=== PATIENT | male | born 1970 | race Caucasian/White ===

== ENCOUNTER 2016-03-28 14:01 | Observation (INO) ==
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
[2016-03-28] MEDS ORDERED: Aspirin 325 MG TABLET PO ONE (15:10)
[2016-03-28] MEDS ORDERED: Nitroglycerin 0.4 MG TAB.SUBL SL PRN (15:10)
--- NOTE | 2016-03-28 15:17 | Emergency Department Note ---
Disposition Clinical Impression: Hypoxia, Hyperglycemia, Obesity Hypertension Qualifiers: Hypertension type: unspecified secondary hypertension Qualified Code(s): I15.9 - Secondary hypertension, unspecified Chest pain Qualifiers: Chest pain type: unspecified Qualified Code(s): R07.9 - Chest pain, unspecified Disposition: Admitted As Inpatient Condition: Good General Adult HPI - General Chief complaint: ED Shortness of Breath/Dyspnea Stated complaint: SOB/Edema/CP Time Seen by Provider: 03/28/16 14:41 Source: patient Mode of arrival: ambulatory Limitations: no limitations Nursing Notes Reviewed: Yes Vital Signs Reviewed: Yes - History of Present Illness Pain Scale: 5 - Related Data Home Medications Medication Instructions Recorded Confirmed Amlodipine [Norvasc] 5 mg PO DAILY 03/28/16 03/28/16 Insulin Regular U-500 [HumuLIN R 0 unit SQ DAILY MDD per insulin 03/28/1603/28 U-500] pump Lisinopril [Zestril] 40 mg PO DAILY 03/28/16 03/28/16 Metformin HCl [Glucophage] 1,000 mg PO BID 03/28/16 03/28/16 Metoprolol XL (24 HR) Succ [Toprol 25 mg PO DAILY 03/28/16 03/28/16 XL] Venlafaxine HCl [Venlafaxine HCl 75 mg PO DAILY 03/28/16 03/28/16 ER] Allergies Allergy/AdvReac Type Severity Reaction Status Date / Time No Known Allergies Allergy Verified 02/21/16 06:41 Constitutional: Reports: as per HPI. Denies: fever Eyes: Reports: as per HPI ENT ED: Reports: as per HPI Cardiovascular: Reports: as per HPI, chest pain, dyspnea on exertion. Denies: palpitations Respiratory: Reports: as per HPI Gastrointestinal: Reports: as per HPI. Denies: nausea, vomiting Genitourinary: Reports: as per HPI Musculoskeletal: Reports: as per HPI, back pain Integumentary: Reports: as per HPI Neurological: Reports: as per HPI Psychiatric: Reports: as per HPI Endocrine: Reports: as per HPI Hematological/Lymphatic: Reports: as per HPI Past Medical History - Past Medical History Medical history: Reports: diabetes, hyperlipidemia, hypertension Surgical history: Reports: non-contributory Psychiatric history: Reports: depression - Social History Smoking Status: Former smoker Smokeless Tobacco Status: No Alcohol use: Reports: none Drug use: Reports: none Physical Exam - General Limitations: no limitations General appearance: alert, in no apparent distress, obese Course Vital Signs Temperature 98.8 F 03/28/16 14:07 Pulse Rate 114 03/28/16 14:07 Respiratory Rate 22 03/28/16 14:07 Blood Pressure 177/93 03/28/16 14:07 O2 Sat by Pulse Oximetry 88 L 03/28/16 14:07 Temperature 98.1 F 03/28/16 17:54 Pulse Rate 102 03/28/16 17:54 Respiratory Rate 15 03/28/16 17:54 Blood Pressure 153/85 03/28/16 17:54 O2 Sat by Pulse Oximetry 95 03/28/16 17:54 Oxygen Delivery Oxygen Delivery Nasal Cannula Medical Decision Making - MDM Narrative Medical decision making narrative: I evaluated this patient with Dr. Cooper, agree with his evaluation management plan, supervise care the patient's stay. Patient was here yesterday he was hypoxic. He appears to have pickwickian profile. Chest x-ray showed no pneumonia stay he had no CT evidence of PE. They wanted admitting he got and some family discussion and independently. He came back today doing anything new today is is also given some chest discomfort. Blood pressure is high. Room him some nitroglycerin try to reduce his preload and takes aspirin and repeat his labs in the bring him into the hospital. Think he might benefit from a pulmonary consult possible CPAP and then reassess. He is in agreement with this plan. Chest X-Ray 03/28/16 14:41 IMPRESSION: No evidence of acute disease. D/ / Jones Torre MD / Jones Torre MD Interpreting Provider: Jones Torre MD 1540 hrs.: Labs are back troponins negative her bring him into the hospital with chest pain rule out ACS. Dyspnea. He is in agreement with this plan. - Lab Data Result diagrams: 03/28/16 14:55 Lab Results 03/28/16 03/28/16 Range/Units 14:55 14:55 Sodium 140 (136-145) mEq/L Potassium 4.2 (3.5-4.5) mEq/L Chloride 103 (98-109) mEq/L Carbon Dioxide 31 H (19-29) mEq/L BUN 24 (8-26) mg/dL Creatinine 1.03 (0.72-1.25) mg/dL Est GFR ( Amer) > 60 (> 60) Est GFR (Non-Af Amer) > 60 (> 60) BUN/Creatinine Ratio 23 (6-26) Glucose 139 H (70-99) mg/dL Calculated Osmolality 296 (280-300) Calcium 9.3 (8.6-10.8) mg/dL Troponin I 0.01 (0-0.03) ng/mL
[2016-03-28 15:26] LABS: BUN/Creatinine Ratio 23 (6-26); Blood Urea Nitrogen 24 mg/dL (8-26); Calcium 9.3 mg/dL (8.6-10.8); Carbon Dioxide 31 mEq/L (19-29); Chloride 103 mEq/L (98-109); Glucose 139 mg/dL (70-99); Osmolality,Calculated 296 (280-300); Potassium 4.2 mEq/L (3.5-4.5); Sodium 140 mEq/L (136-145); eGFR For African Americans > 60 (> 60); eGFR For Non-African Americans > 60 (> 60)
[2016-03-28] MEDS ORDERED: *HR* Metoprolol 5 MG/5 ML VIAL IVP ONE (16:02)
[2016-03-28] MEDS ORDERED: Ondansetron 4 MG/2 ML VIAL IVP PRN (18:42)
[2016-03-28] MEDS ORDERED: Naloxone 0.4 MG/ML INJ IVP PRN (18:42)
[2016-03-28] MEDS ORDERED: Acetaminophen 325 MG TABLET PO PRN (18:42)
--- NOTE | 2016-03-28 18:45 | Internal Med History&Physical ---
Date of Encounter: 03/28/16 Time of Encounter: 18:45 Assessment and Plan (1) Acute respiratory failure with hypoxia Current visit: Yes Status: Acute Chest x-ray shows no evidence of infection, pleural effusion or volume overload. Continue supplemental oxygen at this time. Patient likely has underlying pulmonary hypertension related to possible obstructive sleep apnea/ obesity hypoventilation syndrome. Home oxygen evaluation prior to discharge. Check 2-D echocardiogram to assess for pulmonary hypertension, valvular abnormalities and left ventricular EF. (2) Chest pain Current visit: Yes Status: Acute To rule out ACS and CHF, given his exertional dyspnea, leg swelling, orthopnea and chest pain. Telemetry monitoring with serial troponin trending. 2-D echocardiogram as above. Intermittent IV Lasix and fluid restriction for significant pedal edema. Supportive care. When necessary supplemental oxygen. Qualifiers: Chest pain type: unspecified Qualified Code(s): R07.9 - Chest pain, unspecified (3) Diabetes mellitus Current visit: Yes Status: Chronic Check hemoglobin A1c. Doubtful compliance with diet and medications. Patient is noted to be on insulin pump with RI U500 at basal dose set every 30min and bolus dose customized to carbs and preprandial blood sugar; will continue this for now along with Accucheck blood glucose monitoring; consistent carbohydrate diet; Qualifiers: Diabetes mellitus type: type 2 Diabetes mellitus complication status: with hyperglycemia Diabetes mellitus half-way insulin use: with half-way use Qualified Code(s): E11.65 - Type 2 diabetes mellitus with hyperglycemia; Z79.4 - MCFP (current) use of insulin (4) Hyperlipidemia Current visit: Yes Status: Chronic Qualifiers: Hyperlipidemia type: mixed hyperlipidemia Qualified Code(s): E78.2 - Mixed hyperlipidemia (5) Hypertension Current visit: Yes Status: Chronic Poorly controlled due to medical noncompliance; resume home meds and monitor BP closely; Qualifiers: Hypertension type: essential hypertension Qualified Code(s): I10 - Essential (primary) hypertension (6) Obesity Current visit: Yes Status: Chronic Qualifiers: Obesity type: due to excess calories Obesity severity: unspecified obesity severity Qualified Code(s): E66.09 - Other obesity due to excess calories Internal Medicine - H&P: HPI Chief complaint: Shortness of breath, leg swelling Admitted From: Emergency Dept Plans for Post Hospital Care: Home History of present illness: Mr. Dubon is a 46 year old male with history of hypertension and diabetes, presenting with complaints of progressively worsening shortness of breath. Patient presented to the emergency room yesterday with similar complaints and had a negative workup including CT angiogram of the chest which was negative for pulmonary embolism and was discharged home. He presents today with similar complaints and is noted to be hypoxic on room mate in the emergency room and hospitalist was called for admission. Patient reports that he has been having progressively worsening shortness of breath for the last few weeks to months, both at rest and with exertion. He also reports orthopnea and paroxysmal nocturnal dyspnea and significant leg swelling. This is associated with intermittent retrosternal chest pressure like sensation, nonradiating and he also had chest pain today, relieved with nitroglycerin in the emergency room. No cough, dizziness, syncope, vomiting, diarrhea. He underwent pharmacologic stress test about 2-3 years back, which was normal according to him. He reports being under significant emotional stress as he just from his today. Past Med Surg Social Fam HX - Past Medical History Medical history: diabetes, hyperlipidemia, hypertension Psychiatric history: depression - Past Surgical History Surgical History: orthopedic, other (Right tibial ORIF, bilateral carpal tunnel release surgeries) - Social History Smoking Status: Former smoker Smokeless Tobacco Status: Yes (Chews tobacco) Alcohol use: none Drug use: none Occupational status: employed Current living situation: Home - Independent Activity Level: Independent ambulation Recent Out of Country Travel Within the Last 8 Weeks: No Exposure or Possible Exposure to Illness During Travel: No - Family History Father Name: Albert Dubon Living Status: Still Living Hx Family Cardiac Disorders: Yes (Coronary artery disease, [place]) Paternal Grandfather Hx Family Cardiac Disorders: Yes ([place]) Mother Hx Family Endocrine Disorder: Yes (Diabetes) Internal Medicine - H&P: Meds Amlodipine [Norvasc] 5 mg PO DAILY 03/28/16 [History] Insulin Regular U-500 [HumuLIN R U-500] 0 unit SQ DAILY MDD per insulin pump [History] Lisinopril [Zestril] 40 mg PO DAILY 03/28/16 [History] Metformin HCl [Glucophage] 1,000 mg PO BID 03/28/16 [History] Metoprolol XL (24 HR) Succ [Toprol XL] 25 mg PO DAILY 03/28/16 [History] Venlafaxine HCl [Venlafaxine HCl ER] 75 mg PO DAILY 03/28/16 [History] Allergies No Known Allergies Allergy (Verified 02/21/16 06:41) All Systems PM: A 10-system review of systems was performed and is negative for pertinent findings except as documented above in the HPI. - Constitutional Constitutional: weight gain - EENT Eyes: no change in vision, no discharge, no pain, no photophobia Ears: no ear discharge, no ear pain, no tinnitus Nose, mouth and throat: no dysphagia, no nasal discharge, no neck pain, no sore throat - Cardiovascular Cardiovascular ROS IM: chest pain, dyspnea, dyspnea on exertion, edema, paroxysmal nocturnal dyspnea - Respiratory Respiratory: dyspnea on exertion, no cough, no dyspnea, no wheezing, no excessive phlegm production - Gastrointestinal Gastrointestinal: no abdominal pain, no diarrhea, no hematemesis, no hematochezia, no melena, no nausea, no vomiting - Musculoskeletal Musculoskeletal ROS IM: no numbness, no tingling - Integumentary Integumentary IM: no rash, no unusual bruising - Neurological Neurological ROS: no confusion, no convulsions, no focal weakness, no numbness, no tingling, no tremor(s) - Hematologic/Lymphatic Hematologic/Lymphatic: no easy bruising - Constitutional Vitals: Temp Pulse Resp BP Pulse Ox 98.1 F 102 15 153/85 95 03/28/16 17:54 03/28/16 17:54 03/28/16 17:54 03/28/16 17:54 03/28/16 17:54 General appearance: Present: A&O X 3, obese, answers questions appropriately - Head Head exam: Present: atraumatic, normocephalic - Neck Neck exam general surgery: Present: supple, trachea midline. Absent: lymphadenopathy - Respiratory Respiratory exam: Present: CTAB. Absent: accessory muscle use, rales, rhonchi, wheezes - Cardiovascular Cardiovascular exam: Present: RRR, +S1, +S2. Absent: diastolic murmur, gallop, rubs, systolic murmur - GI/Abdominal GI/Abdominal exam: Present: normal bowel sounds, soft (Obese and nontender), no peritoneal signs. Absent: distended, tenderness - Extremities Exam Extremities exam: Present: pedal edema (2+ tense pedal edema bilateral ankles and legs), warm, radial pulses palpable and symetrical. Absent: calf tenderness , cyanotic - Neurological Exam Neurological exam: Present: CN II-XII intact, oriented X3, no focal deficits. Absent: pronater drift, facial droop, speech deficit - Skin Skin exam: Present: dry, intact Internal Med - H&P Results - Labs CBC & Chem 7: 03/29/16 01:07 03/29/16 01:07 - EKG Data -: EKG Interpreted by Myself EKG shows normal: sinus rhythm Rate: tachycardia - EKG Data EKG comments: 03/29/16 10:16 Changes suggestive of LVH and repolarization abnormalities
[2016-03-28] MEDS: *HR* Metformin 500 MG TABLET PO SCH (21:00)
[2016-03-28] MEDS ORDERED: Furosemide 40 MG/4 ML VIAL IVP ONE (23:36)
[2016-03-29 01:15] LABS: Basophils # 0.1 K/mcL (0.0-0.2); Basophils % 0.6 %; Eosinophils # 0.2 K/mcL (0.0-0.6); Hematocrit 48.1 % (37.5-50.1); Hemoglobin 15.2 g/dL (12.9-16.9); Immature Granulocytes % 0.6 % (0-4); Immature Platelets 1.3 % (1.1-6.1); Lymphocytes # 3.7 K/mcL (0.6-4.6); Lymphocytes % 32.7 %; Mean Corpuscular HGB Conc 31.6 g/dL (31.6-35.5); Mean Corpuscular Hemoglobin 27.9 pg (28.0-33.3); Mean Corpuscular Volume 88.4 fL (83.0-100.0); Mean Platelet Volume 8.2 fL (9.4-12.4); Monocytes # 0.9 K/mcL (0.0-1.3); Monocytes % 7.6 %; Neutrophils # 6.4 K/mcL (1.6-8.9); Platelet Count 286 K/mcL (140-400); Red Blood Count 5.44 M/mcL (4.19-5.50); Red Cell Distribution Width 14.6 % (11.5-14.5); Segmented Neutrophils % 56.5 %
[2016-03-29 01:23] LABS: Hemoglobin A1C 8.1 %
[2016-03-29 01:30] LABS: BUN/Creatinine Ratio 20 (6-26); Blood Urea Nitrogen 21 mg/dL (8-26); Calcium 9.4 mg/dL (8.6-10.8); Carbon Dioxide 28 mEq/L (19-29); Chloride 101 mEq/L (98-109); Chol/HDL Ratio 7.7 (0-4.9); Cholesterol 268 mg/dL (< 200); Glucose 60 mg/dL (70-99); HDL Cholesterol 35 mg/dL (40-59); LDL Cholesterol,Calculated 169 mg/dL (0-99); Osmolality,Calculated 291 (280-300); Potassium 3.8 mEq/L (3.5-4.5); Sodium 140 mEq/L (136-145); Triglycerides 322 mg/dL (< 150); eGFR For African Americans > 60 (> 60); eGFR For Non-African Americans > 60 (> 60)
[2016-03-29] MEDS ORDERED: Baclofen 10 MG TABLET PO PRN (04:07)
[2016-03-29] MEDS ORDERED: Lisinopril 20 MG TABLET PO SCH (09:00)
[2016-03-29] MEDS ORDERED: amLODIPine 5 MG TABLET PO SCH (09:00)
[2016-03-29] MEDS ORDERED: Metoprolol XL (24 HR) Succ 25 MG TAB.ER.24H PO SCH (09:00)
[2016-03-29] MEDS ORDERED: Venlafaxine XR (24 HR) 75 MG CAP.ER.24H PO SCH (09:00)
--- NOTE | 2016-03-29 09:05 | Internal Med Progress Note ---
Date of Encounter: 03/29/16 Time of Encounter: 09:03 - Assessment and plan (1) Chest pain Current Visit: Yes Status: Acute Assessment and plan: Intermittent chest pain, negative troponins. No EKG changes. Patient refused to undergo a stress test. We will obtain an echocardiogram and reassess with results. Patient with morbid obesity, bilateral leg swelling. Clinically there is a strong possibility of obstructive sleep apnea. Discussed with the patient in detail, will evaluate results of echo, if unremarkable may discharge the patient home this afternoon. He agreed with the plan. Qualifiers: Chest pain type: unspecified Qualified Code(s): R07.9 - Chest pain, unspecified (2) Obesity Current Visit: Yes Status: Acute Qualifiers: Obesity type: unspecified obesity type Obesity severity: unspecified obesity severity Qualified Code(s): E66.9 - Obesity, unspecified - Time Spent With Patient 25 - 35 minutes - Subjective Interval history: First encounter with the patient. Patient is complaining of intermittent shortness of breath along with intermittent episodes of chest pain. Additionally, bilateral leg swelling. Patient states that he was upset, anxious due to he had his split up yesterday. - Constitutional Vitals: Temp Pulse Resp BP Pulse Ox 97.8 F 108 19 133/90 92 L 03/29/16 07:15 03/29/16 07:15 03/29/16 07:15 03/29/16 07:15 03/29/16 07:15 General appearance: Present: cooperative, morbidly obese, no acute distress - Head Head exam: Present: atraumatic, normocephalic - Eye Eye exam: Present: PERRL, conjuntiva pink, sclera anicteric Pupils: Present: PERRL - Neck Neck exam general surgery: Present: supple, trachea midline. Absent: lymphadenopathy - Respiratory Respiratory exam: Present: CTAB. Absent: accessory muscle use, rales, rhonchi, wheezes - Cardiovascular Cardiovascular exam: Present: RRR, +S1, +S2. Absent: diastolic murmur, gallop, rubs, systolic murmur - GI/Abdominal GI/Abdominal exam: Present: normal bowel sounds, soft, no peritoneal signs. Absent: distended, tenderness - Extremities Exam Extremities exam: Present: pedal edema, warm, radial pulses palpable and symetrical. Absent: calf tenderness, cyanotic - Neurological Exam Neurological exam: Present: CN II-XII intact, oriented X3, no focal deficits. Absent: pronater drift, facial droop, speech deficit - Skin Skin exam: Present: dry, intact Internal Medicine: Result - Labs CBC & Chem 7: 03/29/16 01:07 03/29/16 01:07 Labs: Short CBC 03/29/16 Range/Units 01:07 WBC 11.3 H (4.3-11.1) K/mcL Hgb 15.2 (12.9-16.9) g/dL Hct 48.1 (37.5-50.1) % Plt Count 286 (140-400) K/mcL Neutrophils # 6.4 (1.6-8.9) K/mcL BMP 03/29/16 01:07 Sodium 140 Potassium 3.8 Chloride 101 Carbon Dioxide 28 BUN 21 Creatinine 1.05 Glucose 60 L Calcium 9.4 Cardiac Enzymes 03/28/16 03/29/16 03/29/16 Range/Units 19:05 01:07 06:32 Troponin I 0.02 0.02 0.00 (0-0.03) ng/mL Consult Discharge Plan - Plan Referrals: Devon Salvador DO [Primary Care Provider] -
[2016-03-29] MEDS ORDERED: Perflutren Lipid Microsphere 1.3 ML in 0.9 % Sodium Chloride 8.7 ML IVP ONE (09:35)
[2016-03-29] MEDS: *HR* Metformin 500 MG TABLET PO SCH (09:39)
[2016-03-29 11:03] VITALS: BP 130/80
--- NOTE | 2016-03-29 12:04 | ECHO - Doppler Report ---
Echo with Imaging Enhancement Agent Name: Ángel Dubon Date of Study: 03/29/2016 Date: 1970 Ht: 70.0 in Medical Record#: [id number] Age: 46 Wt: 342.0 lb Gender: Male BSA: 2.62 Order #: [id number] Location: [facility] Room #: 3B38 Reading Physician: Vera Ballard DO Account Development Specialist: WILTON DoyleT, [facility] Ordering Physician: Roxy Silva MD Primary Physician: Dmitri Salvador DO Indications: Shortness of breath Impressions: LVEF 60%. Normal left ventricular size and systolic function. Definity was given. There is evidence of mild diastolic dysfunction of the left ventricle. Normal right ventricular size and function. No significant valvular dysfunction. No pulmonary hypertension. Left Ventricular Wall Motion: Rest Echo Findings All wall segments showed normal motion. Findings: Study Quality * Technically sub-optimal due to body habitus. ECG Findings * Normal sinus rhythm. Left Ventricle * LVEF 60%. * Poor parasternal images. Unable to measure LV wall thickness. * Visually, LV size and wall thickness appear normal. * Mild left ventricular diastolic dysfunction. * Definity echo contrast was used. Aortic Valve * No aortic regurgitation. * Aortic valve not well visualized. * No aortic stenosis. Mitral Valve * No mitral regurgitation. * Normal mitral valve structure. * No mitral stenosis. Right Ventricle * Normal right ventricular structure and function. Left Atrium * Normal left atrial size. Right Atrium * Normal right atrial size. Tricuspid Valve * Tricuspid valve not well visualized. * Trace tricuspid regurgitation. Pulmonic Valve * Pulmonic valve is not well visualized. * No pulmonic stenosis. * No pulmonic regurgitation. Pulmonary Artery * Pulmonary artery not well visualized. Interatrial Septum * Interatrial septum not well evaluated. Aorta * Not well seen. Pericardium * There is no pericardial effusion present. IVC * The IVC is not well evaluated. History Hypertension Diabetes Contrast: Definity 1.3 ml in 8.7 ml of saline 3 ml. Measurements: BP: 106/ 72 2D Normal Values LVIDd: 5.20 cm 3.7 - 5.6 cm LVIDs: 3.80 cm 1.5 - 3.6 cm AO: 2.90 cm < 4.0 cm LA: 3.70 cm 2.0 - 4.0cm %FS: 26.90 cm >25 % LA volume: 44 Mitral Valve Peak E:1.29 m/sec Peak A:1.12 m/sec E/A Ratio:1.2 Tricuspid Valve TV Regurg Peak Grad: 23.00mmHg TV Regurg Peak Arcenio: 2.40m/sec Updated by Vera Ballard on 03/29/2016 11:57:39 AM electronically signed on 03/29/2016 11:59:33 AM with status of Final Wall Motion Fu: 1=Normal, 2=Hypokinesis, 3=Akinesis, 4=Dyskinesis, 5=Aneurysmal, 6=Hyperkinetic, X=Not Visualized (Blank)=Missing
--- NOTE | 2016-03-29 13:35 | Discharge Summary ---
Date of Encounter: 03/29/16 Time of Encounter: 13:33 - Discharge Diagnosis (1) Chest pain Priority: Primary Status: Acute Qualifiers: Chest pain type: unspecified Qualified Code(s): R07.9 - Chest pain, unspecified (2) Obesity Priority: Secondary Status: Chronic Qualifiers: Obesity type: due to excess calories Obesity severity: unspecified obesity severity Qualified Code(s): E66.09 - Other obesity due to excess calories - Discharge Medications Home Medications: Amlodipine [Norvasc] 5 mg PO DAILY 03/28/16 [History] Insulin Regular U-500 [HumuLIN R U-500] 0 unit SQ DAILY MDD per insulin pump [History] Lisinopril [Zestril] 40 mg PO DAILY 03/28/16 [History] Metformin HCl [Glucophage] 1,000 mg PO BID 03/28/16 [History] Metoprolol XL (24 HR) Succ [Toprol XL] 25 mg PO DAILY 03/28/16 [History] Venlafaxine HCl [Venlafaxine HCl ER] 75 mg PO DAILY 03/28/16 [History] Allergies/Adverse Reactions: Allergies No Known Allergies Allergy (Verified 02/21/16 06:41) Procedures/tests Complete & Pending: Procedures Performed prior 72 hours Category Date Time Status EV echocardiogram w enhance Routine Y 03/29/16 18:43 Completed Date of admission: 03/28/16 16:40 Primary care physician: Devon Salvador, Consults: 03/28/16 18:45 Consult to Booking Officer [CONS] Routine Comment: 03/28/16 18:50 Consult to Head Of Biology [CONS] Routine Reason for SW Consult: possible home oxygen set up Discharging clinician: Mahesh Edward Anticipated date of discharge: 03/29/16 - Patient Status Disposition: Home, Self-Care Condition: Good Functional capacity at discharge: independent ambulation Overall status at discharge: patient is back to baseline - Discharge Instructions Follow Up With: Devon Salvador DO [Primary Care Provider] - Additional Instructions: MARTY workup - Diet and Activity Activity: increase activity as tolerated Diet: diabetic diet Interval History: Mr. Dubon is a 46 year old male with history of hypertension and diabetes, presenting with complaints of progressively worsening shortness of breath. Patient presented to the emergency room yesterday with similar complaints and had a negative workup including CT angiogram of the chest which was negative for pulmonary embolism and was discharged home. He presents today with similar complaints and is noted to be hypoxic on room mate in the emergency room and hospitalist was called for admission. Patient reports that he has been having progressively worsening shortness of breath for the last few weeks to months, both at rest and with exertion. He also reports orthopnea and paroxysmal nocturnal dyspnea and significant leg swelling. This is associated with intermittent retrosternal chest pressure like sensation, nonradiating and he also had chest pain today, relieved with nitroglycerin in the emergency room. No cough, dizziness, syncope, vomiting, diarrhea. He underwent pharmacologic stress test about 2-3 years back, which was normal according to him. He reports being under significant emotional stress as he just from his today. Hospital course: Mr. Dubon is a 46 year old male admitted due to shortness of breath, intermittent chest pain. He had extensive workup including CT angiography chest which ruled out pulmonary embolism. Echocardiogram was essentially unremarkable. Troponin negative for ischemia. The patient is morbidly obese and has clinical findings consistent with obstructive sleep apnea. We will discharge the patient home today, with follow-up as outpatient with his primary care physician. A follow-up and workup for obstructive sleep apnea has been recommended to the patient, he expressed understanding. - Time Spent with Patient Total time spent providing and/or coordinating discharge services: Greater than 30 minutes - Constitutional Vitals: Temp Pulse Resp BP Pulse Ox 98.1 F 94 17 130/80 90 L 03/29/16 11:02 03/29/16 11:02 03/29/16 11:02 03/29/16 11:02 03/29/16 11:02 General appearance: Present: A&O X 3, morbidly obese, obese, answers questions appropriately - Head Head exam: Present: atraumatic, normocephalic - Eye Eye exam: Present: PERRL, conjuntiva pink, sclera anicteric Pupils: Present: PERRL - Neck Neck exam general surgery: Present: supple, trachea midline. Absent: lymphadenopathy - Respiratory Respiratory exam: Present: CTAB. Absent: accessory muscle use, rales, rhonchi, wheezes - Cardiovascular Cardiovascular exam: Present: RRR, +S1, +S2. Absent: diastolic murmur, gallop, rubs, systolic murmur - GI/Abdominal GI/Abdominal exam: Present: normal bowel sounds, soft, no peritoneal signs. Absent: distended, tenderness - Extremities Exam Extremities exam: Present: warm, radial pulses palpable and symetrical. Absent : calf tenderness, cyanotic, pedal edema - Neurological Exam Neurological exam: Present: CN II-XII intact, oriented X3, no focal deficits. Absent: pronater drift, facial droop, speech deficit - Skin Skin exam: Present: dry, intact
[2016-03-29] MEDS ORDERED: *HR* Heparin 5,000 UNIT/ML VIAL SQ SCH (16:00)
--- NOTE | 2016-03-31 12:04 | Electrocardiograph Report ---
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
== END 2016-03-29 14:12 | disposition home or self-care (01) ==
LOC: 3BNU 14:01 → EMEROO 14:01 → SUATTDRO 16:40 → 3BNU 17:22
PROVIDERS: ADMIT Nurse Practitioner Family; ATTEND Internal Medicine

== ENCOUNTER 2019-05-25 15:13 | Observation (INO) ==
[2019-05-25] MEDS ORDERED: Metoclopramide 10 MG/2 ML VIAL IVP STA (15:32)
[2019-05-25] MEDS ORDERED: GI Cocktail 40 ML EACH PO ONE (15:40)
[2019-05-25 16:23] LABS: Basophils # 0.1 K/mcL (0.0-0.2); Basophils % 0.8 %; Eosinophils # 0.2 K/mcL (0.0-0.6); Eosinophils % 1.5 %; Hematocrit 44.1 % (37.5-50.1); Hemoglobin 13.7 g/dL (12.9-16.9); Immature Granulocytes % 0.8 % (0-4); Lymphocytes # 2.1 K/mcL (0.6-4.6); Lymphocytes % 20.6 %; Mean Corpuscular HGB Conc 31.1 g/dL (31.6-35.5); Mean Corpuscular Hemoglobin 27.7 pg (28.0-33.3); Mean Corpuscular Volume 89.1 fL (83.0-100.0); Mean Platelet Volume 9.4 fL (9.4-12.4); Monocytes # 0.8 K/mcL (0.0-1.3); Monocytes % 7.8 %; Platelet Count 262 K/mcL (140-400); Red Blood Count 4.95 M/mcL (4.19-5.50); Red Cell Distribution Width 14.9 % (11.5-14.5); Segmented Neutrophils % 68.5 %; White Blood Count 10.2 K/mcL (4.3-11.1)
[2019-05-25 16:40] LABS: BUN/Creatinine Ratio 23 (6-26); Blood Urea Nitrogen 26 mg/dL (6-20); Calcium 8.7 mg/dL (8.6-10.3); Carbon Dioxide 26 mEq/L (23-29); Chloride 98 mEq/L (98-107); Glucose 410 mg/dL (70-105); Osmolality,Calculated 300 (280-300); Potassium 4.5 mEq/L (3.5-5.1); Sodium 134 mEq/L (136-145); eGFR For African Americans > 60 (> 60); eGFR For Non-African Americans > 60 (> 60)
[2019-05-25] MEDS ORDERED: Furosemide 40 MG/4 ML VIAL IVP ONE (16:40)
[2019-05-25 16:41] LABS: Troponin I 0.03 ng/mL (< 0.04)
[2019-05-25 17:08] LABS: Bilirubin,Urine Negative (Negative); Blood,Urine Negative (Negative); Clarity,Urine Clear (Clear); Color,Urine Yellow (Yellow); Glucose,Urine (UA) >=1000 mg/dL (Normal); Ketones,Urine Negative (Negative); Protein,Urine Negative (Neg-Trace); Specific Gravity,Urine 1.016 (1.010-1.025); Urobilinogen,Urine Normal (Normal)
[2019-05-25 17:09] LABS: Leukocyte Esterase,Urine Negative (Negative); Nitrite,Urine Negative (Negative)
[2019-05-25] MEDS ORDERED: Acetaminophen 325 MG TABLET PO PRN (17:52)
[2019-05-25] MEDS ORDERED: Ondansetron 4 MG/2 ML VIAL IVP PRN (17:52)
[2019-05-25] MEDS ORDERED: D5% in Water 1,000 ML IVC PRN (17:57)
[2019-05-25] MEDS ORDERED: Dextrose Gel 15 GM/37.5 ML TUBE PO PRN ×2 (17:57)
[2019-05-25] MEDS ORDERED: *HR* Dextrose 50 % in Water (Syg) 50 ML SYRINGE IVP PRN (17:57)
[2019-05-25] MEDS ORDERED: Ipratropium/Albuterol Neb 3 ML IH PRN (18:44)
[2019-05-25] MEDS ORDERED: Perflutren Lipid Microsphere 1.3 ML in 0.9 % Sodium Chloride 8.7 ML IVP ONE (20:14)
[2019-05-25] MEDS ORDERED: Insulin LISPRO 300 UNITS/3 ML VIAL SQ SCH (21:00)
[2019-05-25 21:28] LABS: Amphetamine Screen,Urine Negative ng/mL (Cutoff=1000); Barbiturate Screen,Urine Negative ng/mL (Cutoff=200); Benzodiazepines Screen,Urine Negative ng/mL (Cutoff=200); Cannabinoid Screen,Urine Negative ng/mL (Cutoff = 50); Cocaine Screen,Urine Negative ng/mL (Cutoff= 300); Opiate Screen,Urine Negative ng/mL (Cutoff=300); Phencyclidine Screen,Urine Negative ng/mL (Cutoff=25)
[2019-05-25] MEDS: Azithromycin 250 MG TABLET PO SCH (22:09)
[2019-05-25] MEDS: Insulin LISPRO 300 UNITS/3 ML VIAL SQ SCH (22:09)
[2019-05-25 23:48] LABS: Adenovirus Not Detected (Not Detect); Bordetella Pertussis Not Detected (Not Detect); Chlamydophila pneumoniae Not Detected (Not Detect); Coronavirus 229E Not Detected (Not Detect); Coronavirus HKU1 Not Detected (Not Detect); Coronavirus NL63 Not Detected (Not Detect); Coronavirus OC43 Not Detected (Not Detect); Human Metapneumovirus Not Detected (Not Detect); Human Rhinovirus/Enterovirus Not Detected (Not Detect); Influenza A Subtype 2009 H1 Not Detected (Not Detect); Influenza B Not Detected (Not Detect); Mycoplasma pneumoniae Not Detected (Not Detect); Parainfluenza Virus 1 Not Detected (Not Detect); Parainfluenza Virus 2 Not Detected (Not Detect); Parainfluenza Virus 3 Not Detected (Not Detect); Parainfluenza Virus 4 Not Detected (Not Detect); Respiratory Syncytial Virus Not Detected (Not Detect)
[2019-05-26 03:38] LABS: BUN/Creatinine Ratio 26 (6-26); Blood Urea Nitrogen 36 mg/dL (6-20); Calcium 8.8 mg/dL (8.6-10.3); Carbon Dioxide 26 mEq/L (23-29); Chloride 95 mEq/L (98-107); Chol/HDL Ratio 7.6 (0-4.9); Cholesterol 267 mg/dL (< 200); Glucose 443 mg/dL (70-105); HDL Cholesterol 35 mg/dL (40-59); Magnesium 1.4 mg/dL (1.6-2.6); Osmolality,Calculated 303 (280-300); Potassium 4.5 mEq/L (3.5-5.1); Sodium 133 mEq/L (136-145); Triglycerides 951 mg/dL (< 150); Troponin I < 0.03 ng/mL (< 0.04); eGFR For African Americans > 60 (> 60); eGFR For Non-African Americans 54 (> 60)
[2019-05-26 03:44] LABS: Thyroid Stimulating Hormone 3.436 mcIU/mL (0.340-5.600)
[2019-05-26 03:49] LABS: Estimated Average Glucose 252 mg/dl
[2019-05-26] MEDS: Insulin LISPRO 300 UNITS/3 ML VIAL SQ SCH ×5 (08:17→21:30)
[2019-05-26] MEDS: Aspirin Enteric Coated 81 MG Tablet PO SCH (08:18)
[2019-05-26] MEDS: lisinopriL 20 MG TABLET PO SCH (08:18)
[2019-05-26] MEDS: Azithromycin 250 MG TABLET PO SCH (08:18)
[2019-05-26] MEDS ORDERED: Furosemide 40 MG/4 ML VIAL IVP SCH (09:00)
[2019-05-26] MEDS: Magnesium Oxide 400 MG TABLET PO SCH ×2 (12:33→20:29)
[2019-05-26] MEDS ORDERED: *HR* Insulin Regular U-500 500 UNIT/ML SQ SCH ×2 (17:00→20:00)
[2019-05-26] MEDS: *HR* Heparin 5,000 UNIT/ML VIAL SQ SCH (17:10)
[2019-05-26] MEDS ORDERED: *HR* Dextrose 50 % in Water (Syg) 50 ML SYRINGE IVP PRN (17:39)
[2019-05-26] MEDS ORDERED: Dextrose Gel 15 GM/37.5 ML TUBE PO PRN ×2 (17:39)
[2019-05-26] MEDS ORDERED: D5% in Water 1,000 ML IVC PRN (17:39)
[2019-05-26] MEDS: Insulin DETEMIR 100 UNIT/ML X5UNITS SQ SCH ×2 (20:15→20:44)
[2019-05-26] MEDS ORDERED: Insulin Human Regular 10 UNIT in 0.9 % Sodium Chloride 10 ML IV ONE (20:42)
[2019-05-27] MEDS: *HR* Heparin 5,000 UNIT/ML VIAL SQ SCH ×2 (05:17→18:46)
[2019-05-27 05:21] LABS: Hematocrit 42.5 % (37.5-50.1); Mean Corpuscular HGB Conc 30.6 g/dL (31.6-35.5); Mean Corpuscular Hemoglobin 27.4 pg (28.0-33.3); Mean Corpuscular Volume 89.7 fL (83.0-100.0); Mean Platelet Volume 9.3 fL (9.4-12.4); Platelet Count 236 K/mcL (140-400); Red Blood Count 4.74 M/mcL (4.19-5.50); Red Cell Distribution Width 14.9 % (11.5-14.5); White Blood Count 10.3 K/mcL (4.3-11.1)
[2019-05-27 05:33] LABS: BUN/Creatinine Ratio 39 (6-26); Blood Urea Nitrogen 48 mg/dL (6-20); Calcium 8.4 mg/dL (8.6-10.3); Carbon Dioxide 28 mEq/L (23-29); Chloride 95 mEq/L (98-107); Glucose 257 mg/dL (70-105); Magnesium 1.7 mg/dL (1.6-2.6); Osmolality,Calculated 293 (280-300); Potassium 4.1 mEq/L (3.5-5.1); Sodium 131 mEq/L (136-145); eGFR For African Americans > 60 (> 60); eGFR For Non-African Americans > 60 (> 60)
[2019-05-27] MEDS: Insulin LISPRO 300 UNITS/3 ML VIAL SQ SCH ×7 (07:48→21:49)
[2019-05-27] MEDS: Azithromycin 250 MG TABLET PO SCH (07:49)
[2019-05-27] MEDS: lisinopriL 20 MG TABLET PO SCH (07:49)
[2019-05-27] MEDS: Aspirin Enteric Coated 81 MG Tablet PO SCH (07:49)
[2019-05-27] MEDS: Insulin DETEMIR 100 UNIT/ML X5UNITS SQ SCH ×2 (07:49→21:49)
[2019-05-27] MEDS: Magnesium Oxide 400 MG TABLET PO SCH ×2 (07:50→21:49)
[2019-05-27] MEDS: Furosemide 40 MG TABLET PO SCH (07:50)
[2019-05-28 04:42] LABS: Hematocrit 44.7 % (37.5-50.1); Hemoglobin 13.6 g/dL (12.9-16.9); Mean Corpuscular HGB Conc 30.4 g/dL (31.6-35.5); Mean Corpuscular Hemoglobin 26.9 pg (28.0-33.3); Mean Corpuscular Volume 88.3 fL (83.0-100.0); Mean Platelet Volume 9.2 fL (9.4-12.4); Platelet Count 264 K/mcL (140-400); Red Blood Count 5.06 M/mcL (4.19-5.50); Red Cell Distribution Width 14.8 % (11.5-14.5); White Blood Count 10.4 K/mcL (4.3-11.1)
[2019-05-28 05:03] LABS: BUN/Creatinine Ratio 38 (6-26); Blood Urea Nitrogen 42 mg/dL (6-20); Calcium 8.6 mg/dL (8.6-10.3); Carbon Dioxide 29 mEq/L (23-29); Chloride 98 mEq/L (98-107); Glucose 78 mg/dL (70-105); Osmolality,Calculated 289 (280-300); Potassium 3.6 mEq/L (3.5-5.1); Sodium 135 mEq/L (136-145); eGFR For African Americans > 60 (> 60); eGFR For Non-African Americans > 60 (> 60)
[2019-05-28] MEDS: *HR* Heparin 5,000 UNIT/ML VIAL SQ SCH (05:16)
[2019-05-28] MEDS: Insulin LISPRO 300 UNITS/3 ML VIAL SQ SCH ×3 (07:55→07:56)
[2019-05-28] MEDS: Furosemide 40 MG TABLET PO SCH (08:16)
[2019-05-28] MEDS: Aspirin Enteric Coated 81 MG Tablet PO SCH (08:16)
[2019-05-28] MEDS: Magnesium Oxide 400 MG TABLET PO SCH (08:16)
[2019-05-28] MEDS: lisinopriL 20 MG TABLET PO SCH (08:16)
[2019-05-28] MEDS: Azithromycin 250 MG TABLET PO SCH (08:17)
[2019-05-28] MEDS: Insulin DETEMIR 100 UNIT/ML X5UNITS SQ SCH (08:18)
[2019-05-28 10:29] VITALS: BP 130/75
== END 2019-05-28 11:06 | disposition home or self-care (01) ==
LOC: 3BNU 15:13 → EMEROOARM 15:13 → 3BNU 18:38
PROVIDERS: ADMIT Internal Medicine; ATTEND Internal Medicine

== ENCOUNTER 2021-04-03 05:37 | Observation (INO) ==
[2021-04-03 06:10] LABS: Basophils # 0.1 K/mcL (0.0-0.2); Basophils % 0.7 %; Eosinophils # 0.2 K/mcL (0.0-0.6); Eosinophils % 1.5 %; Hematocrit 45.8 % (37.5-50.1); Hemoglobin 13.6 g/dL (12.9-16.9); Immature Granulocytes % 0.5 % (0-4); Lymphocytes # 2.1 K/mcL (0.6-4.6); Lymphocytes % 20.8 %; Mean Corpuscular HGB Conc 29.7 g/dL (31.6-35.5); Mean Corpuscular Hemoglobin 26.4 pg (28.0-33.3); Mean Corpuscular Volume 88.8 fL (83.0-100.0); Monocytes % 9.5 %; Neutrophils # 6.7 K/mcL (1.6-8.9); Platelet Count 239 K/mcL (140-400); Red Blood Count 5.16 M/mcL (4.19-5.50); Red Cell Distribution Width 14.9 % (11.5-14.5)
[2021-04-03 06:19] LABS: INR 1.1; Prothrombin Time 11.7 Seconds (9.4-12.1)
[2021-04-03 06:21] LABS: Activated Partial Thrombo Time 30.9 Seconds (26.0-36.0)
[2021-04-03 06:26] LABS: Calcium 8.9 mg/dL (8.6-10.3); Potassium 4.6 mEq/L (3.5-5.1)
[2021-04-03 06:27] LABS: Troponin I 0.03 ng/mL (< 0.04)
[2021-04-03] MEDS ORDERED: Furosemide 40 MG/4 ML VIAL IVP ONE (07:42)
[2021-04-03] MEDS ORDERED: Nitroglycerin 0.4 MG TAB.SUBL SL ONE (07:43)
[2021-04-03] MEDS ORDERED: Naloxone 0.4 MG/ML INJ IVP PRN (09:32)
[2021-04-03] MEDS ORDERED: Melatonin 3 MG TABLET PO PRN (09:32)
[2021-04-03] MEDS ORDERED: Ondansetron 4 MG/2 ML VIAL IVP PRN (09:32)
[2021-04-03] MEDS ORDERED: Nitroglycerin 0.4 MG TAB.SUBL SL PRN (09:36)
[2021-04-03] MEDS ORDERED: Aspirin 325 MG TABLET PO ONE (10:01)
[2021-04-03] MEDS ORDERED: Perflutren Lipid Microsphere 1.3 ML in 0.9 % Sodium Chloride 8.7 ML IVP PRN (10:23)
[2021-04-03 11:25] LABS: Troponin I 0.03 ng/mL (< 0.04)
[2021-04-03] MEDS ORDERED: Metoprolol XL (24 HR) Succ 25 MG TAB.ER.24H PO ONE (12:11)
[2021-04-03] MEDS ORDERED: Regadenoson 0.4 MG/5 ML SYRINGE IVP ONE (12:16)
[2021-04-03] MEDS ORDERED: *HR* Dextrose 50 % in Water (Syg) 50 ML SYRINGE IVP PRN (13:16)
[2021-04-03] MEDS ORDERED: Dextrose Gel 15 GM/37.5 ML TUBE PO PRN ×2 (13:16)
[2021-04-03] MEDS ORDERED: D5% in Water 1,000 ML IVC PRN (13:16)
[2021-04-03] MEDS: *HR* Heparin 5,000 UNIT/ML VIAL SQ SCH ×2 (13:49→21:37)
[2021-04-03] MEDS: Insulin LISPRO 300 UNITS/3 ML VIAL SUBQ SCH (17:24)
[2021-04-04] MEDS: *HR* Heparin 5,000 UNIT/ML VIAL SQ SCH ×3 (05:57→21:09)
[2021-04-04 06:30] LABS: Basophils # 0.1 K/mcL (0.0-0.2); Basophils % 0.6 %; Eosinophils # 0.1 K/mcL (0.0-0.6); Eosinophils % 1.1 %; Hematocrit 42.9 % (37.5-50.1); Hemoglobin 12.6 g/dL (12.9-16.9); Immature Granulocytes % 0.5 % (0-4); Lymphocytes # 1.9 K/mcL (0.6-4.6); Lymphocytes % 18.5 %; Mean Corpuscular HGB Conc 29.4 g/dL (31.6-35.5); Mean Corpuscular Hemoglobin 27.1 pg (28.0-33.3); Mean Corpuscular Volume 92.3 fL (83.0-100.0); Mean Platelet Volume 9.2 fL (9.4-12.4); Monocytes # 0.8 K/mcL (0.0-1.3); Monocytes % 7.5 %; Neutrophils # 7.5 K/mcL (1.6-8.9); Platelet Count 251 K/mcL (140-400); Red Blood Count 4.65 M/mcL (4.19-5.50); Red Cell Distribution Width 14.8 % (11.5-14.5); Segmented Neutrophils % 71.8 %; White Blood Count 10.5 K/mcL (4.3-11.1)
[2021-04-04] MEDS: Insulin LISPRO 300 UNITS/3 ML VIAL SUBQ SCH ×3 (09:53→18:05)
[2021-04-04] MEDS ORDERED: Bumetanide 1 MG/4 ML VIAL IVP SCH (10:00)
[2021-04-04] MEDS ORDERED: Insulin Human Regular 10 UNIT in 0.9 % Sodium Chloride 10 ML IV ONE (13:00)
[2021-04-04 13:46] LABS: Calcium 8.2 mg/dL (8.6-10.3); Potassium 5.5 mEq/L (3.5-5.1)
[2021-04-04 16:07] LABS: Chol/HDL Ratio 7.5 (0-4.9); Magnesium 1.6 mg/dL (1.6-2.6); Phosphorous 4.7 mg/dL (2.7-4.5)
[2021-04-04 16:17] LABS: Thyroid Stimulating Hormone 3.506 mcIU/mL (0.340-5.600)
[2021-04-04 17:05] LABS: Estimated Average Glucose 246 mg/dl; Hemoglobin A1C 10.2 %
[2021-04-04] MEDS ORDERED: Insulin DETEMIR 100 UNIT/ML X5UNITS SUBQ SCH (21:00)
[2021-04-05 02:29] LABS: Basophils # 0.1 K/mcL (0.0-0.2); Basophils % 0.6 %; Eosinophils # 0.1 K/mcL (0.0-0.6); Eosinophils % 1.7 %; Hematocrit 42.5 % (37.5-50.1); Hemoglobin 12.4 g/dL (12.9-16.9); Immature Granulocytes % 0.5 % (0-4); Lymphocytes # 1.7 K/mcL (0.6-4.6); Lymphocytes % 20.5 %; Mean Corpuscular HGB Conc 29.2 g/dL (31.6-35.5); Mean Corpuscular Hemoglobin 26.2 pg (28.0-33.3); Mean Corpuscular Volume 89.7 fL (83.0-100.0); Mean Platelet Volume 8.9 fL (9.4-12.4); Monocytes # 0.7 K/mcL (0.0-1.3); Monocytes % 8.1 %; Neutrophils # 5.6 K/mcL (1.6-8.9); Platelet Count 217 K/mcL (140-400); Red Blood Count 4.74 M/mcL (4.19-5.50); Red Cell Distribution Width 14.6 % (11.5-14.5); Segmented Neutrophils % 68.6 %; White Blood Count 8.1 K/mcL (4.3-11.1)
[2021-04-05 02:48] LABS: Calcium 8.7 mg/dL (8.6-10.3); Potassium 5.3 mEq/L (3.5-5.1)
[2021-04-05] MEDS: *HR* Heparin 5,000 UNIT/ML VIAL SQ SCH (05:22)
[2021-04-05] MEDS: Insulin LISPRO 300 UNITS/3 ML VIAL SUBQ SCH ×2 (07:52→11:36)
[2021-04-05 09:11] LABS: Sodium, Urine 35.9 mEq/L
[2021-04-05 10:14] LABS: Bilirubin,Urine Negative (Negative); Blood,Urine Negative (Negative); Clarity,Urine Clear (Clear); Color,Urine Light-Yellow (Yellow); Glucose,Urine (UA) >=1000 mg/dL (Normal); Ketones,Urine Negative (Negative); Leukocyte Esterase,Urine Negative (Negative); Mucus,Urine Few per lpf (None-Few); Nitrite,Urine Negative (Negative); PH,Urine 5.5 pH Units (5.0-8.0); Protein,Urine Negative (Neg-Trace); RBC,Urine 0-3 per hpf (0-3); Specific Gravity,Urine 1.018 (1.010-1.025); Urobilinogen,Urine Normal (Normal); WBC,Urine 0-3 per hpf (0-3)
[2021-04-05 11:04] VITALS: BP 169/73; PULSE 94; TEMP 98.2; O2SAT 94
== END 2021-04-05 14:03 | disposition home or self-care (01) ==
LOC: 3BNU 05:37 → EMEROOARM 05:37 → 3BNU 10:22
PROVIDERS: ADMIT Student in an Organized Health Care Education/Training Program; ATTEND Student in an Organized Health Care Education/Training Program

== ENCOUNTER 2021-04-25 10:00 | Observation (INO) ==
[2021-04-25 10:57] LABS: Basophils # 0.1 K/mcL (0.0-0.2); Basophils % 0.5 %; Eosinophils # 0.1 K/mcL (0.0-0.6); Hematocrit 44.8 % (37.5-50.1); Hemoglobin 13.3 g/dL (12.9-16.9); Immature Granulocytes % 0.4 % (0-4); Lymphocytes # 1.5 K/mcL (0.6-4.6); Lymphocytes % 13.9 %; Mean Corpuscular HGB Conc 29.7 g/dL (31.6-35.5); Mean Corpuscular Hemoglobin 26.9 pg (28.0-33.3); Mean Corpuscular Volume 90.5 fL (83.0-100.0); Mean Platelet Volume 8.5 fL (9.4-12.4); Monocytes # 0.8 K/mcL (0.0-1.3); Monocytes % 7.3 %; Neutrophils # 8.2 K/mcL (1.6-8.9); Platelet Count 200 K/mcL (140-400); Red Blood Count 4.95 M/mcL (4.19-5.50); Red Cell Distribution Width 15.5 % (11.5-14.5); Segmented Neutrophils % 76.9 %; White Blood Count 10.6 K/mcL (4.3-11.1)
[2021-04-25 11:01] LABS: Bilirubin,Urine Negative (Negative); Blood,Urine Negative (Negative); Clarity,Urine Clear (Clear); Color,Urine Colorless (Yellow); Glucose,Urine (UA) >=1000 mg/dL (Normal); Ketones,Urine Negative (Negative); Leukocyte Esterase,Urine Negative (Negative); Nitrite,Urine Negative (Negative); PH,Urine 5.5 pH Units (5.0-8.0); Protein,Urine Negative (Neg-Trace); RBC,Urine 0-3 per hpf (0-3); Specific Gravity,Urine 1.006 (1.010-1.025); Urobilinogen,Urine Normal (Normal); WBC,Urine 0-3 per hpf (0-3)
[2021-04-25 11:05] LABS: Prothrombin Time 11.3 Seconds (9.4-12.1)
[2021-04-25 11:07] LABS: Activated Partial Thrombo Time 30.4 Seconds (26.0-36.0)
[2021-04-25 11:24] LABS: Albumin/Globulin Ratio 1.2 (1.1-2.2); Bilirubin,Total 0.6 mg/dL (0.3-1.0); Calcium 8.5 mg/dL (8.6-10.3); Globulin 3.4 g/dL (2.4-3.5); Potassium 3.8 mEq/L (3.5-5.1); Total Protein 7.4 g/dL (6.4-8.9); Troponin I 0.04 ng/mL (< 0.04)
[2021-04-25 11:38] LABS: Influenza A PCR Negative (Negative); Influenza B PCR Negative (Negative); Resp. Syncytial Virus PCR Negative (Negative)
[2021-04-25 11:47] LABS: SARS-CoV-2 by PCR (In House) Negative (Negative)
[2021-04-25 12:05] LABS: VBG HCO3 36 mEq/L (21-27); VBG PCO2 71 mmHg (41-51); VBG PH 7.31 pH Units (7.32-7.42); VBG PO2 108 mmHg (25-50)
[2021-04-25] MEDS ORDERED: Acetaminophen 325 MG TABLET PO PRN (13:08)
[2021-04-25] MEDS ORDERED: Naloxone 0.4 MG/ML INJ IVP PRN (13:08)
[2021-04-25 13:20] LABS: Estimated Average Glucose 263 mg/dl; Hemoglobin A1C 10.8 %
[2021-04-25] MEDS: Metoprolol XL (24 HR) Succ 25 MG TAB.ER.24H PO SCH (15:15)
[2021-04-25] MEDS: Aspirin 81 MG TAB.CHEW PO SCH (15:15)
[2021-04-25] MEDS: Isosorbide MONOnitrate (24 HR) 30 MG TAB.ER.24H PO SCH (15:15)
[2021-04-25] MEDS ORDERED: Gabapentin 300 MG CAPSULE PO PRN (15:51)
[2021-04-25] MEDS ORDERED: Dextrose Gel 15 GM/37.5 ML TUBE PO PRN ×2 (15:57)
[2021-04-25] MEDS ORDERED: D5% in Water 1,000 ML IVC PRN (15:57)
[2021-04-25] MEDS ORDERED: *HR* Dextrose 50 % in Water (Syg) 50 ML SYRINGE IVP PRN (15:57)
[2021-04-25] MEDS: Bumetanide 1 MG TABLET PO SCH (17:21)
[2021-04-25] MEDS: Insulin LISPRO 300 UNITS/3 ML VIAL SUBQ SCH (17:21)
[2021-04-25] MEDS: *HR* Insulin Regular U-500 500 UNIT/ML SUBQ SCH (17:22)
[2021-04-26 01:38] LABS: Basophils # 0.1 K/mcL (0.0-0.2); Basophils % 0.6 %; Eosinophils # 0.1 K/mcL (0.0-0.6); Eosinophils % 1.5 %; Hematocrit 43.6 % (37.5-50.1); Hemoglobin 12.8 g/dL (12.9-16.9); Immature Granulocytes % 0.5 % (0-4); Lymphocytes # 1.7 K/mcL (0.6-4.6); Lymphocytes % 17.9 %; Mean Corpuscular HGB Conc 29.4 g/dL (31.6-35.5); Mean Corpuscular Hemoglobin 27.1 pg (28.0-33.3); Mean Corpuscular Volume 92.2 fL (83.0-100.0); Mean Platelet Volume 8.8 fL (9.4-12.4); Monocytes # 0.8 K/mcL (0.0-1.3); Monocytes % 8.2 %; Neutrophils # 6.9 K/mcL (1.6-8.9); Platelet Count 204 K/mcL (140-400); Red Blood Count 4.73 M/mcL (4.19-5.50); Red Cell Distribution Width 15.3 % (11.5-14.5); Segmented Neutrophils % 71.3 %; White Blood Count 9.6 K/mcL (4.3-11.1)
[2021-04-26 02:03] LABS: Albumin 3.8 g/dL (3.5-5.7); Albumin/Globulin Ratio 1.1 (1.1-2.2); Bilirubin,Total 0.5 mg/dL (0.3-1.0); Calcium 8.1 mg/dL (8.6-10.3); Globulin 3.5 g/dL (2.4-3.5); Potassium 4.1 mEq/L (3.5-5.1); Total Protein 7.3 g/dL (6.4-8.9)
[2021-04-26] MEDS: *HR* Insulin Regular U-500 500 UNIT/ML SUBQ SCH (08:42)
[2021-04-26] MEDS: Isosorbide MONOnitrate (24 HR) 30 MG TAB.ER.24H PO SCH (08:43)
[2021-04-26] MEDS: Aspirin 81 MG TAB.CHEW PO SCH (08:43)
[2021-04-26] MEDS: Bumetanide 1 MG TABLET PO SCH (08:43)
[2021-04-26] MEDS: Metoprolol XL (24 HR) Succ 25 MG TAB.ER.24H PO SCH (08:43)
[2021-04-26] MEDS: Insulin LISPRO 300 UNITS/3 ML VIAL SUBQ SCH ×2 (08:44→11:50)
[2021-04-26] MEDS ORDERED: Fenofibrate 54 MG TABLET PO SCH (09:00)
[2021-04-26 11:33] VITALS: BP 122/73; PULSE 91; TEMP 98.4; O2SAT 96
== END 2021-04-26 12:27 | disposition home or self-care (01) ==
LOC: EMEROOARM 10:00 → 3ANU 10:00 → SUATTDRO 12:33 → 3ANU 13:05
PROVIDERS: ADMIT Internal Medicine; ATTEND Internal Medicine

== ENCOUNTER 2021-05-08 09:14 | Inpatient (IN) ==
[2021-05-08] MEDS ORDERED: Aspirin 325 MG TABLET PO ONE (09:42)
[2021-05-08 10:01] LABS: Basophils # 0.1 K/mcL (0.0-0.2); Basophils % 0.7 %; Eosinophils # 0.1 K/mcL (0.0-0.6); Eosinophils % 1.1 %; Hematocrit 45.5 % (37.5-50.1); Hemoglobin 12.9 g/dL (12.9-16.9); Immature Granulocytes % 0.8 % (0-4); Lymphocytes # 1.7 K/mcL (0.6-4.6); Lymphocytes % 16.2 %; Mean Corpuscular HGB Conc 28.4 g/dL (31.6-35.5); Mean Corpuscular Hemoglobin 26.6 pg (28.0-33.3); Mean Corpuscular Volume 93.8 fL (83.0-100.0); Mean Platelet Volume 8.5 fL (9.4-12.4); Monocytes # 0.8 K/mcL (0.0-1.3); Monocytes % 7.5 %; Neutrophils # 7.9 K/mcL (1.6-8.9); Nucleated Red Blood Cells 0.2 /100 WBC (0); Platelet Count 249 K/mcL (140-400); Red Blood Count 4.85 M/mcL (4.19-5.50); Red Cell Distribution Width 16.2 % (11.5-14.5); Segmented Neutrophils % 73.7 %; White Blood Count 10.7 K/mcL (4.3-11.1)
[2021-05-08] MEDS ORDERED: Furosemide 40 MG/4 ML VIAL IVP ONE (10:06)
[2021-05-08 10:22] LABS: BUN/Creatinine Ratio 22 (6-26); Blood Urea Nitrogen 32 mg/dL (6-20); Calcium 8.8 mg/dL (8.6-10.3); Carbon Dioxide 35 mEq/L (23-29); Chloride 96 mEq/L (98-107); Glucose 226 mg/dL (70-105); Osmolality,Calculated 296 (280-300); Potassium 3.9 mEq/L (3.5-5.1); Sodium 136 mEq/L (136-145); Troponin I 0.03 ng/mL (< 0.04); eGFR For African Americans > 60 (> 60); eGFR For Non-African Americans 51 (> 60)
[2021-05-08 10:25] LABS: Anisocytosis 1+ (Not Present); Hypochromasia Present (Not Present); Platelet Estimate Normal (Normal)
[2021-05-08 10:26] LABS: Prothrombin Time 11.6 Seconds (9.4-12.1)
[2021-05-08] MEDS ORDERED: Naloxone 0.4 MG/ML INJ IVP PRN ×2 (11:18→19:11)
[2021-05-08 12:20] LABS: ABG Base Excess 4 mEq/L (-2 to 3); ABG HCO3 36 mEq/L (21-27); ABG Oxygen Saturation 85 % (95-98); ABG PCO2 95 mmHg (35-45); ABG PH 7.19 pH Units (7.32-7.45); ABG PO2 65 mmHg (85-104); ABG TCO2 39 mEq/L (20-26)
[2021-05-08] MEDS ORDERED: D5% in Water 1,000 ML IVC PRN ×2 (12:48→19:20)
[2021-05-08] MEDS ORDERED: *HR* Dextrose 50 % in Water (Syg) 50 ML SYRINGE IVP PRN ×2 (12:48→19:20)
[2021-05-08] MEDS ORDERED: Dextrose Gel 15 GM/37.5 ML TUBE PO PRN ×4 (12:48→19:20)
[2021-05-08] MEDS: Insulin LISPRO 300 UNITS/3 ML VIAL SUBQ SCH ×3 (13:20→23:52)
[2021-05-08 14:23] LABS: Influenza A PCR Negative (Negative); Influenza B PCR Negative (Negative); Resp. Syncytial Virus PCR Negative (Negative)
[2021-05-08] MEDS: (Insulin Pump Cartridge [Insulin Pump] 1 EACH Implant SQ SCH (14:33)
[2021-05-08 14:38] LABS: SARS-CoV-2 by PCR (In House) Negative (Negative)
[2021-05-08] MEDS: Ipratropium/Albuterol Neb 3 ML IH SCH ×4 (15:59→22:33)
[2021-05-08] MEDS ORDERED: Furosemide 40 MG/4 ML VIAL IVP SCH (17:00)
[2021-05-08 17:17] LABS: ABG Base Excess 4 mEq/L (-2 to 3); ABG HCO3 37 mEq/L (21-27); ABG Oxygen Saturation 95 % (95-98); ABG PCO2 104 mmHg (35-45); ABG PH 7.16 pH Units (7.32-7.45); ABG PO2 103 mmHg (85-104); ABG TCO2 40 mEq/L (20-26)
[2021-05-08] MEDS ORDERED: Bumetanide 1 MG/4 ML VIAL IVP ONE (17:28)
[2021-05-08] MEDS: Albumin 25% 25gram/100mL 25 GM/100 ML IV.SOLN IVPB SCH (17:37)
[2021-05-08] MEDS ORDERED: *HR* Heparin 5,000 UNIT/ML VIAL SQ SCH (18:00)
[2021-05-08] MEDS ORDERED: *HR* Metoprolol 5 MG/5 ML VIAL IVP ONE (18:06)
[2021-05-08] MEDS ORDERED: *HR* Midazolam HCl 5 MG/5 ML VIAL IVP ONE ×2 (18:34→18:56)
[2021-05-08] MEDS ORDERED: *HR* Succinylcholine 200 MG/10 ML VIAL IVP ONE (18:34)
[2021-05-08] MEDS: FentaNYL (PF) 1,000 MCG/100 ML IV.SOLN IVC SCH (18:58)
[2021-05-08] MEDS ORDERED: Bumetanide 12 MG in 0.9 % Sodium Chloride 48 ML IVC SCH (19:15)
[2021-05-08] MEDS ORDERED: Artificial Tears SOLN 15 ML BOTTLE BOTH EYES PRN (19:17)
[2021-05-08] MEDS ORDERED: Vancomycin 2,000 MG/520 ML IV.SOLN IVPB ONE (19:26)
[2021-05-08] MEDS ORDERED: Vancomycin (wt based) 1,000 MG VIAL IVPB SCH (20:00)
[2021-05-08 20:05] LABS: ABG Base Excess 5 mEq/L (-2 to 3); ABG HCO3 35 mEq/L (21-27); ABG Oxygen Saturation 89 % (95-98); ABG PCO2 77 mmHg (35-45); ABG PH 7.26 pH Units (7.32-7.45); ABG PO2 68 mmHg (85-104); ABG TCO2 37 mEq/L (20-26); Blood Gas Modality ASSIST CONTROL; Blood Gas VT 500 cc
[2021-05-08] MEDS: Norepinephrine 4 MG/254 ML IV.SOLN IVC SCH (20:43)
[2021-05-08] MEDS ORDERED: Insulin LISPRO 300 UNITS/3 ML VIAL SUBQ SCH (21:00)
[2021-05-08] MEDS: Budesonide/Formoterol 160/4.5 1 PUFF INH IH SCH (22:33)
[2021-05-08] MEDS: Artificial Tears SOLN 15 ML BOTTLE BOTH EYES SCH (23:01)
[2021-05-08] MEDS: Gabapentin 300 MG CAPSULE PO SCH (23:30)
[2021-05-08] MEDS: Piperacillin/Tazobactam 3.375 GM in 0.9 % Sodium Chloride Mini Bag 100 ML IVPB SCH (23:31)
[2021-05-08] MEDS: Chlorhexidine Rinse 15 ML MOUTHWASH MM SCH (23:31)
[2021-05-08 23:46] LABS: ABG Base Excess 6 mEq/L (-2 to 3); ABG HCO3 33 mEq/L (21-27); ABG Oxygen Saturation 100 % (95-98); ABG PCO2 54 mmHg (35-45); ABG PH 7.39 pH Units (7.32-7.45); ABG PO2 200 mmHg (85-104); ABG TCO2 34 mEq/L (20-26); Blood Gas Modality AF; Blood Gas VT 550 cc
[2021-05-08] MEDS: *HR* Heparin 5,000 UNIT/ML VIAL SQ SCH (23:54)
[2021-05-08] MEDS: methylPREDNISolone 125 MG/2 ML VIAL IVP SCH (23:58)
[2021-05-09] MEDS: Piperacillin/Tazobactam 3.375 GM in 0.9 % Sodium Chloride Mini Bag 100 ML IVPB SCH ×4 (00:03→23:16)
[2021-05-09] MEDS: Artificial Tears SOLN 15 ML BOTTLE BOTH EYES SCH ×7 (01:50→23:16)
[2021-05-09] MEDS: FentaNYL (PF) 1,000 MCG/100 ML IV.SOLN IVC SCH ×4 (02:18→23:17)
[2021-05-09] MEDS: Ipratropium/Albuterol Neb 3 ML IH SCH ×6 (03:31→23:33)
[2021-05-09] MEDS: Insulin LISPRO 300 UNITS/3 ML VIAL SUBQ SCH ×4 (03:33→23:18)
[2021-05-09 04:04] LABS: Hemoglobin 12.8 g/dL (12.9-16.9); Immature Granulocytes % 0.9 % (0-4); Monocytes % 2.2 %; Nucleated Red Blood Cells 0.1 /100 WBC (0); Red Cell Distribution Width 15.9 % (11.5-14.5)
[2021-05-09 04:05] LABS: Basophils # 0.1 K/mcL (0.0-0.2); Basophils % 0.5 %; Lymphocytes # 0.9 K/mcL (0.6-4.6); Lymphocytes % 5.9 %; Mean Corpuscular HGB Conc 28.4 g/dL (31.6-35.5); Mean Corpuscular Hemoglobin 26.5 pg (28.0-33.3); Mean Corpuscular Volume 93.2 fL (83.0-100.0); Mean Platelet Volume 8.7 fL (9.4-12.4); Monocytes # 0.3 K/mcL (0.0-1.3); Neutrophils # 13.3 K/mcL (1.6-8.9); Platelet Count 265 K/mcL (140-400); Red Blood Count 4.83 M/mcL (4.19-5.50); Segmented Neutrophils % 90.5 %; White Blood Count 14.7 K/mcL (4.3-11.1)
[2021-05-09 04:20] LABS: ABG Base Excess 0 mEq/L (-2 to 3); ABG HCO3 30 mEq/L (21-27); ABG Oxygen Saturation 95 % (95-98); ABG PCO2 66 mmHg (35-45); ABG PH 7.26 pH Units (7.32-7.45); ABG PO2 88 mmHg (85-104); ABG TCO2 32 mEq/L (20-26); Blood Gas Modality AF; Blood Gas VT 550 cc
[2021-05-09 04:21] LABS: Calcium 8.1 mg/dL (8.6-10.3); Magnesium 1.5 mg/dL (1.6-2.6); Phosphorous 3.8 mg/dL (2.7-4.5); Potassium 4.7 mEq/L (3.5-5.1)
[2021-05-09 04:56] LABS: VBG Ionized Calcium 1.08 mmol/L (1.15-1.35)
[2021-05-09 05:27] LABS: Hypochromasia Present (Not Present); Platelet Estimate Normal (Normal)
[2021-05-09] MEDS: *HR* Heparin 5,000 UNIT/ML VIAL SQ SCH (07:12)
[2021-05-09] MEDS: Budesonide/Formoterol 160/4.5 1 PUFF INH IH SCH ×2 (07:22→19:59)
[2021-05-09] MEDS ORDERED: Magnesium Sulfate 1 GM/102 ML PIGGYBACK IVPB ONE (07:55)
[2021-05-09] MEDS: Albumin 25% 25gram/100mL 25 GM/100 ML IV.SOLN IVPB SCH (07:59)
[2021-05-09] MEDS: Norepinephrine 4 MG/254 ML IV.SOLN IVC SCH ×3 (07:59→20:14)
[2021-05-09] MEDS: methylPREDNISolone 125 MG/2 ML VIAL IVP SCH ×3 (08:09→23:16)
[2021-05-09] MEDS: Pantoprazole 40 MG VIAL IVP SCH (08:10)
[2021-05-09] MEDS ORDERED: *HR* Heparin 5,000 UNIT/ML VIAL IVP PRN ×2 (08:59)
[2021-05-09] MEDS ORDERED: *HR* Heparin 5,000 UNIT/ML VIAL IVP ONE (08:59)
[2021-05-09] MEDS ORDERED: Bumetanide 12 MG in 0.9 % Sodium Chloride 48 ML IVC SCH (09:00)
[2021-05-09] MEDS ORDERED: Vancomycin 2,000 MG/520 ML IV.SOLN IVPB SCH (09:00)
[2021-05-09] MEDS: Chlorhexidine Rinse 15 ML MOUTHWASH MM SCH ×2 (09:29→19:52)
[2021-05-09] MEDS: Fenofibrate 54 MG TABLET PO SCH (09:29)
[2021-05-09] MEDS: Metoprolol XL (24 HR) Succ 25 MG TAB.ER.24H PO SCH (09:30)
[2021-05-09] MEDS: Gabapentin 300 MG CAPSULE PO SCH ×2 (09:30→19:52)
[2021-05-09] MEDS: Isosorbide MONOnitrate (24 HR) 30 MG TAB.ER.24H PO SCH (09:30)
[2021-05-09] MEDS: Vancomycin 2,000 MG/520 ML IV.SOLN IVPB SCH ×2 (09:33→19:58)
[2021-05-09] MEDS: Heparin 25,000UNIT/250ML 1/2NS 25,000 UNIT/250 ML IV.SOLN IVC SCH ×2 (10:05→19:51)
[2021-05-09] MEDS: Aspirin Enteric Coated 81 MG Tablet PO SCH (10:11)
[2021-05-09 11:08] LABS: Heparin anti-factor XA UFH 0.52 IU/mL (0.30-0.70); INR 1.3
[2021-05-09] MEDS: (Insulin Pump Cartridge [Insulin Pump] 1 EACH Implant SQ SCH (14:04)
[2021-05-09] MEDS ORDERED: Furosemide 40 MG/4 ML VIAL IVP SCH (17:30)
[2021-05-10] MEDS: Artificial Tears SOLN 15 ML BOTTLE BOTH EYES SCH ×6 (03:06→22:56)
[2021-05-10] MEDS: Norepinephrine 4 MG/254 ML IV.SOLN IVC SCH (03:08)
[2021-05-10] MEDS: Insulin LISPRO 300 UNITS/3 ML VIAL SUBQ SCH (03:08)
[2021-05-10 03:38] LABS: VBG Ionized Calcium 1.04 mmol/L (1.15-1.35)
[2021-05-10 03:43] LABS: Basophils % 0.1 %; Hemoglobin 12.5 g/dL (12.9-16.9); Red Cell Distribution Width 16.2 % (11.5-14.5)
[2021-05-10] MEDS: Ipratropium/Albuterol Neb 3 ML IH SCH ×5 (03:43→21:11)
[2021-05-10 03:45] LABS: Hematocrit 42.6 % (37.5-50.1); Immature Granulocytes % 0.9 % (0-4); Lymphocytes # 0.9 K/mcL (0.6-4.6); Lymphocytes % 4.8 %; Mean Corpuscular HGB Conc 29.3 g/dL (31.6-35.5); Mean Corpuscular Hemoglobin 27.1 pg (28.0-33.3); Mean Corpuscular Volume 92.2 fL (83.0-100.0); Mean Platelet Volume 8.8 fL (9.4-12.4); Monocytes # 0.7 K/mcL (0.0-1.3); Monocytes % 3.6 %; Neutrophils # 17.2 K/mcL (1.6-8.9); Platelet Count 260 K/mcL (140-400); Red Blood Count 4.62 M/mcL (4.19-5.50); Segmented Neutrophils % 90.6 %
[2021-05-10] MEDS ORDERED: *HR* Midazolam HCl 2 MG/2 ML VIAL IVP ONE ×2 (03:46→12:44)
[2021-05-10 03:52] LABS: Magnesium 1.7 mg/dL (1.6-2.6); Phosphorous 5.6 mg/dL (2.7-4.5)
[2021-05-10 03:53] LABS: Calcium 8.5 mg/dL (8.6-10.3)
[2021-05-10] MEDS ORDERED: Ringers Solution, Lactated 1,000 ML IVC ONE (04:05)
[2021-05-10] MEDS ORDERED: Potassium Phosphate 44 MEQ in 0.9 % Sodium Chloride 250 ML IVPB PRN (04:06)
[2021-05-10] MEDS: *HR* Midazolam HCl 2 MG/2 ML VIAL IVP PRN ×4 (04:17→14:14)
[2021-05-10] MEDS: Calcium Gluconate 1gm/50mL 1 GM/50 ML BAG IVPB PRN (04:27)
[2021-05-10] MEDS: FentaNYL (PF) 1,000 MCG/100 ML IV.SOLN IVC SCH ×4 (05:06→21:16)
[2021-05-10 05:07] LABS: ABG Base Excess -1 mEq/L (-2 to 3); ABG HCO3 28 mEq/L (21-27); ABG Oxygen Saturation 92 % (95-98); ABG PCO2 64 mmHg (35-45); ABG PH 7.25 pH Units (7.32-7.45); ABG PO2 75 mmHg (85-104); ABG TCO2 30 mEq/L (20-26); Blood Gas Modality AF; Blood Gas VT 450 cc
[2021-05-10] MEDS: Heparin 25,000UNIT/250ML 1/2NS 25,000 UNIT/250 ML IV.SOLN IVC SCH (05:59)
[2021-05-10] MEDS: Budesonide/Formoterol 160/4.5 1 PUFF INH IH SCH ×2 (07:36→21:11)
[2021-05-10] MEDS: methylPREDNISolone 125 MG/2 ML VIAL IVP SCH (07:46)
[2021-05-10] MEDS: Piperacillin/Tazobactam 3.375 GM in 0.9 % Sodium Chloride Mini Bag 100 ML IVPB SCH ×3 (07:48→22:56)
[2021-05-10] MEDS: Aspirin Enteric Coated 81 MG Tablet PO SCH (07:50)
[2021-05-10] MEDS: Isosorbide MONOnitrate (24 HR) 30 MG TAB.ER.24H PO SCH (07:50)
[2021-05-10] MEDS: Fenofibrate 54 MG TABLET PO SCH (07:51)
[2021-05-10] MEDS: Chlorhexidine Rinse 15 ML MOUTHWASH MM SCH ×2 (07:51→19:55)
[2021-05-10] MEDS: Pantoprazole 40 MG VIAL IVP SCH (07:52)
[2021-05-10] MEDS: Gabapentin 300 MG CAPSULE PO SCH ×2 (07:52→19:55)
[2021-05-10] MEDS: Metoprolol XL (24 HR) Succ 25 MG TAB.ER.24H PO SCH (07:52)
[2021-05-10] MEDS ORDERED: Furosemide 40 MG/4 ML VIAL IVP SCH (08:00)
[2021-05-10] MEDS ORDERED: Perflutren Lipid Microsphere 1.3 ML in 0.9 % Sodium Chloride 8.7 ML IVP PRN (09:13)
[2021-05-10 10:41] LABS: Bilirubin,Urine Negative (Negative); Blood,Urine Large (Negative); Clarity,Urine Turbid (Clear); Glucose,Urine (UA) Normal (Normal); Ketones,Urine Negative (Negative); Leukocyte Esterase,Urine Negative (Negative); Nitrite,Urine Negative (Negative); PH,Urine 5.5 pH Units (5.0-8.0); Protein,Urine 50 mg/dL (Neg-Trace); Specific Gravity,Urine 1.018 (1.010-1.025); Urobilinogen,Urine Normal (Normal)
[2021-05-10 10:44] LABS: Color,Urine Amber (Yellow)
[2021-05-10 10:47] LABS: Protein/Creatinine Ratio,Urine 0.84 mg/mg (0.00-0.20); Sodium, Urine 11.3 mEq/L
[2021-05-10] MEDS ORDERED: *HR* Etomidate 20 MG/10 ML AMPUL IVP ONE (12:44)
[2021-05-10] MEDS: (Insulin Pump Cartridge [Insulin Pump] 1 EACH Implant SQ SCH (12:59)
[2021-05-10] MEDS ORDERED: Ipratropium/Albuterol Neb 3 ML ONE (14:01)
[2021-05-10 14:06] LABS: Complement C3 175 mg/dL (87-200)
[2021-05-10] MEDS: Ringers Solution, Lactated 1,000 ML IVC SCH ×2 (16:30→22:56)
[2021-05-10] MEDS: Albumin 25% 25gram/100mL 25 GM/100 ML IV.SOLN IVPB SCH ×2 (16:31→22:56)
[2021-05-10] MEDS ORDERED: Vancomycin 2,000 MG/520 ML IV.SOLN IVPB SCH (21:00)
[2021-05-10] MEDS: *HR* Heparin 5,000 UNIT/ML VIAL SQ SCH (22:55)
[2021-05-11] MEDS: Ipratropium/Albuterol Neb 3 ML IH SCH ×4 (00:22→11:59)
[2021-05-11] MEDS: FentaNYL (PF) 1,000 MCG/100 ML IV.SOLN IVC SCH ×3 (01:11→11:36)
[2021-05-11] MEDS: *HR* Midazolam HCl 2 MG/2 ML VIAL IVP PRN ×2 (03:25→03:59)
[2021-05-11] MEDS ORDERED: Ipratropium/Albuterol Neb 3 ML ONE (04:01)
[2021-05-11 04:10] LABS: VBG Ionized Calcium 1.04 mmol/L (1.15-1.35)
[2021-05-11] MEDS: Artificial Tears SOLN 15 ML BOTTLE BOTH EYES SCH ×2 (04:11→08:40)
[2021-05-11] MEDS ORDERED: Ipratropium/Albuterol Neb 3 ML IH ONE (04:12)
[2021-05-11 04:19] LABS: ABG Base Excess -6 mEq/L (-2 to 3); ABG HCO3 25 mEq/L (21-27); ABG Oxygen Saturation 80 % (95-98); ABG PCO2 73 mmHg (35-45); ABG PH 7.14 pH Units (7.32-7.45); ABG PO2 59 mmHg (85-104); ABG TCO2 27 mEq/L (20-26); Blood Gas Modality ASSIST CONTROL; Blood Gas VT 450 cc
[2021-05-11 04:25] LABS: Calcium 8.2 mg/dL (8.6-10.3); Phosphorous 8.8 mg/dL (2.7-4.5); Potassium 4.5 mEq/L (3.5-5.1)
[2021-05-11 04:42] LABS: Albumin 3.7 g/dL (3.5-5.7); Albumin/Globulin Ratio 1.2 (1.1-2.2); Bilirubin,Direct 0.1 mg/dL (0.0-0.2); Bilirubin,Indirect 0.4 mg/dL (0.0-1.0); Bilirubin,Total 0.5 mg/dL (0.3-1.0); Total Protein 6.7 g/dL (6.4-8.9)
[2021-05-11] MEDS: Calcium Gluconate 1gm/50mL 1 GM/50 ML BAG IVPB PRN (04:44)
[2021-05-11] MEDS ORDERED: 0.9 % Sodium Chloride 500 ML ONE (04:54)
[2021-05-11 05:46] LABS: Hematocrit 42.1 % (37.5-50.1); Hemoglobin 12.1 g/dL (12.9-16.9); Mean Corpuscular HGB Conc 28.7 g/dL (31.6-35.5); Mean Corpuscular Hemoglobin 27.2 pg (28.0-33.3); Mean Corpuscular Volume 94.6 fL (83.0-100.0); Red Blood Count 4.45 M/mcL (4.19-5.50); White Blood Count 18.6 K/mcL (4.3-11.1)
[2021-05-11 05:47] LABS: Basophils % 0.2 %; Immature Granulocytes % 0.6 % (0-4); Lymphocytes # 1.4 K/mcL (0.6-4.6); Lymphocytes % 7.5 %; Monocytes # 1.5 K/mcL (0.0-1.3); Monocytes % 8.1 %; Neutrophils # 15.6 K/mcL (1.6-8.9); Platelet Count 255 K/mcL (140-400); Red Cell Distribution Width 16.1 % (11.5-14.5); Segmented Neutrophils % 83.6 %
[2021-05-11] MEDS: *HR* Heparin 5,000 UNIT/ML VIAL SQ SCH (06:04)
[2021-05-11] MEDS: Ringers Solution, Lactated 1,000 ML IVC SCH (06:12)
[2021-05-11 06:46] LABS: ABG Base Excess -4 mEq/L (-2 to 3); ABG HCO3 26 mEq/L (21-27); ABG Oxygen Saturation 88 % (95-98); ABG PCO2 70 mmHg (35-45); ABG PH 7.18 pH Units (7.32-7.45); ABG PO2 70 mmHg (85-104); ABG TCO2 28 mEq/L (20-26); Blood Gas Modality ASSIST CONTROL; Blood Gas VT 450 cc
[2021-05-11] MEDS: Budesonide/Formoterol 160/4.5 1 PUFF INH IH SCH (07:28)
[2021-05-11] MEDS: Piperacillin/Tazobactam 3.375 GM in 0.9 % Sodium Chloride Mini Bag 100 ML IVPB SCH (08:38)
[2021-05-11] MEDS: Fenofibrate 54 MG TABLET PO SCH (08:39)
[2021-05-11] MEDS: Pantoprazole 40 MG VIAL IVP SCH (08:39)
[2021-05-11] MEDS: Gabapentin 300 MG CAPSULE PO SCH (08:39)
[2021-05-11] MEDS: Chlorhexidine Rinse 15 ML MOUTHWASH MM SCH (08:40)
[2021-05-11] MEDS: Albumin 25% 25gram/100mL 25 GM/100 ML IV.SOLN IVPB SCH (08:40)
[2021-05-11] MEDS: Isosorbide MONOnitrate (24 HR) 30 MG TAB.ER.24H PO SCH (08:40)
[2021-05-11] MEDS: Metoprolol XL (24 HR) Succ 25 MG TAB.ER.24H PO SCH (08:42)
[2021-05-11] MEDS ORDERED: Aspirin 81 MG TAB.CHEW GTUBE SCH (09:00)
[2021-05-11] MEDS ORDERED: 0.9 % Sodium Chloride 250 ML IVC PRN (10:52)
[2021-05-11] MEDS ORDERED: *HR* Atropine Sulfate 1 MG/10 ML SYRINGE ONE (11:41)
[2021-05-11] MEDS ORDERED: Sodium Bicarbonate 150 MEQ in D5% in Water 1,000 ML IVC SCH (11:45)
[2021-05-11] MEDS ORDERED: Norepinephrine 4 MG in 0.9 % Sodium Chloride 250 ML IVC SCH (12:15)
[2021-05-11] MEDS ORDERED: EPINEPHrine 1 MG in D5% in Water 250 ML IVC SCH (12:30)
[2021-05-11] MEDS ORDERED: *HR* EPINEPHrine 1 MG/10 ML SYRINGE IVP ONE (12:44)
[2021-05-11] MEDS ORDERED: *HR* Atropine Sulfate 1 MG/10 ML SYRINGE IV ONE (12:44)
[2021-05-11 13:13] VITALS: TEMP 97.1
[2021-05-11 17:40] VITALS: BP 70/53; PULSE 50; O2SAT 87
== END 2021-05-11 12:45 | disposition expired | DRG 291 ==
LOC: EMEROOARM 09:14 → 2ANU 09:14 → ICNU 22:45
PROVIDERS: ADMIT Internal Medicine; ATTEND Internal Medicine